=== PATIENT | male | born 1940 | race Caucasian/White ===

== ENCOUNTER → 2022-07-30 | Emergency (ER) | payer OTHER | LOC: JP.ED 10:00 | DX: L03.116 Cellulitis of left lower limb (principal) | CPT/HCPCS: 99282 ==

== ENCOUNTER 2024-03-07 21:12 | Inpatient (IN) | payer OTHER ==
[2024-03-07] MEDS: HYDROmorphone 1 MG/ML Syringe IM ONE (22:24)
[2024-03-07 22:26] LABS: BASOPHILS ABSOLUTE AUTO 0.05 K/uL (0.00-0.10); BASOPHILS PERCENT AUTO 0.5 % (0.1-1.3); EOSINOPHILS PERCENT AUTO 3.1 % (0.0-5.4); HEMATOCRIT 36.3 % (38.4-49.7); HEMOGLOBIN 12.5 g/dL (12.9-16.9); IMMATURE GRAN PERCENT AUTO 0.1 % (0.0-0.7); LYMPHOCYTES PERCENT AUTO 20.9 % (11.4-47.7); MEAN CORPUSCULAR HEMOGLOBIN 32.4 pg (31.6-35.5); MEAN CORPUSCULAR HGB CONC 34.4 g/dL (31.6-35.5); MONOCYTES ABSOLUTE AUTO 0.88 K/uL (0.20-0.90); MONOCYTES PERCENT AUTO 9.2 % (3.3-12.6); NEUTROPHILS ABSOLUTE AUTO 6.34 K/uL (1.0-7.6); NEUTROPHILS PERCENT AUTO 66.2 % (40.0-78.1); PLATELET COUNT,PLT 227 K/uL (130-375); RED BLOOD CELL COUNT 3.86 M/uL (4.14-5.76); WHITE BLOOD CELL COUNT,WBC 9.6 K/uL (3.2-11.0)
[2024-03-07] MEDS: HYDROmorphone 0.5 MG/0.5 ML Syringe IVPUSH ONE (22:26)
[2024-03-07 22:28] LABS: IMMATURE GRAN ABSOLUTE AUTO 0.01 K/uL (0.00-0.23)
[2024-03-07] MEDS: Ondansetron 4 MG/2 ML SDV IVPUSH ONE (22:30)
[2024-03-07 22:46] LABS: A/G RATIO 1.1 (1.2-2.2); ALANINE AMINOTRANSFERASE,ALT 26 U/L (12-78); ALBUMIN 4.1 g/dL (3.4-5.0); ALKALINE PHOSPHATASE 114 U/L (46-116); ASPARTATE AMNIOTRANSFERASE,AST 19 U/L (15-37); BILIRUBIN TOTAL 0.5 mg/dL (0.2-1.0); BLOOD UREA NITROGEN,BUN 31 mg/dL (7-18); CARBON DIOXIDE,CO2 24 mmol/L (21-32); CHLORIDE,CL 99 mmol/L (100-108); CREATININE 1.2 mg/dL (0.8-1.3); ESTIMATED GFR 59 mL/min (>60); GLUCOSE RANDOM 288 mg/dL (74-106); POTASSIUM,K 4.8 mmol/L (3.6-5.2); PROTEIN TOTAL,TP 7.8 g/dL (6.4-8.2); SODIUM,NA 131 mmol/L (140-148)
[2024-03-07 22:49] LABS: ANION GAP 12.8 mmol/L (5.0-14.0)
[2024-03-08] MEDS: HYDROmorphone 0.5 MG/0.5 ML Syringe IVPUSH ONE (01:01)
[2024-03-08] MEDS ORDERED: Magnesium Hydroxide 400 MG/5 ML Susp 30 ML Cup PO PRN (01:27)
[2024-03-08] MEDS ORDERED: Sennosides/Docusate Sodium 50-8.6 MG Tab PO PRN (01:27)
[2024-03-08] MEDS ORDERED: Acetaminophen 325 MG Tab PO PRN (01:27)
[2024-03-08] MEDS ORDERED: Ondansetron 4 MG Tab.DIS PO PRN (01:27)
[2024-03-08] MEDS ORDERED: Melatonin 3 MG Tab PO PRN (01:27)
[2024-03-08] MEDS: Sodium Chloride 0.9% 1,000 ML IV SCH (01:36)
[2024-03-08] MEDS: HYDROmorphone 0.5 MG/0.5 ML Syringe IVPUSH PRN (03:24)
[2024-03-08 04:59] LABS: HEMATOCRIT 34.5 % (38.4-49.7); HEMOGLOBIN 11.9 g/dL (12.9-16.9); MEAN CORPUSCULAR HEMOGLOBIN 32.4 pg (31.6-35.5); MEAN CORPUSCULAR HGB CONC 34.5 g/dL (31.6-35.5); RED BLOOD CELL COUNT 3.67 M/uL (4.14-5.76); WHITE BLOOD CELL COUNT,WBC 7.3 K/uL (3.2-11.0)
[2024-03-08 05:09] LABS: CALCIUM 8.8 mg/dL (8.5-10.1); EST CRCL DRUG DOSING (CG) 59.28 mL/min; POTASSIUM,K 4.9 mmol/L (3.6-5.2)
[2024-03-08 05:19] LABS: ANION GAP 11.9 mmol/L (5.0-14.0)
[2024-03-08] MEDS: Ondansetron 4 MG/2 ML SDV IV PRN (05:31)
[2024-03-08] MEDS: Insulin Lispro 100 Unit/ML 3 ML KwikPen SUBCUT SCH (09:32)
[2024-03-08] MEDS: Dorzolamide/Timolol 2%-0.5% Ophth Soln 10 ML Bottle EYEBOTH SCH (09:36)
[2024-03-08] MEDS: Brimonidine 0.2% Ophth Soln 5 ML Bottle EYERT SCH (09:37)
[2024-03-08] MEDS: Latanoprost 0.005% Ophth Soln 2.5 ML Bottle EYEBOTH SCH (21:21)
[2024-03-09 05:16] LABS: CALCIUM 7.9 mg/dL (8.5-10.1); CREATININE 0.8 mg/dL (0.8-1.3); EST CRCL DRUG DOSING (CG) 74.1 mL/min; POTASSIUM,K 3.7 mmol/L (3.6-5.2)
[2024-03-09 05:17] LABS: ANION GAP 10.7 mmol/L (5.0-14.0)
[2024-03-09] MEDS ORDERED: Sodium Chloride 0.9% 1,000 ML IV SCH (09:19)
[2024-03-09] MEDS: Magnesium Hydroxide 400 MG/5 ML Susp 30 ML Cup PO SCH (10:15)
== END 2024-03-10 12:08 | disposition home or self-care (01) | DRG 390 ==
LOC: JP.ED 21:12 → JP.MS 03-08 00:51 → OBSVTOIN 03-09 14:54
PROVIDERS: ADMIT Registered Nurse; ATTEND Internal Medicine
PROC: 0D9670Z Drainage of Stomach with Drainage Device, Via Natural or Artificial Opening (ICD-10-PCS; principal; 2024-03-09)
DX: K56.50 Intestinal adhesions [bands], unspecified as to partial versus complete obstruction (principal); E11.51 Type 2 diabetes mellitus with diabetic peripheral angiopathy without gangrene; I73.9 Peripheral vascular disease, unspecified; E11.69 Type 2 diabetes mellitus with other specified complication; E11.39 Type 2 diabetes mellitus with other diabetic ophthalmic complication; H42 Glaucoma in diseases classified elsewhere; Z85.038 Personal history of other malignant neoplasm of large intestine; Z88.0 Allergy status to penicillin; Z79.84 Long term (current) use of oral hypoglycemic drugs; Z79.899 Other long term (current) drug therapy; Z89.421 Acquired absence of other right toe(s); Z89.411 Acquired absence of right great toe; Z98.890 Other specified postprocedural states
CPT/HCPCS: 36415; 43752; 71045; 74021; 74021-26; 74176; 80048; 80053; 82947; 83690; 85025; 85027; 93005; 96361; 96374; 96375; 96376; 99222; 99232; 99238; 99285; 99285-25; A9270-GY; G0378; J1170; J1815; J2405; J7030

== ENCOUNTER 2025-08-17 00:45 | Emergency (ER) | payer MEDICARE | END 2025-08-17 02:01 | disposition home or self-care (01) | LOC: JP.ED 00:45 | DX: K56.609 Unspecified intestinal obstruction, unspecified as to partial versus complete obstruction (principal); E11.9 Type 2 diabetes mellitus without complications; Z88.0 Allergy status to penicillin; Z79.84 Long term (current) use of oral hypoglycemic drugs; Z79.899 Other long term (current) drug therapy; Z86.16 Personal history of COVID-19; Z90.49 Acquired absence of other specified parts of digestive tract | CPT/HCPCS: 99283 ==